=== PATIENT | female | born 1940 | race Caucasian/White ===

== ENCOUNTER → 2017-03-14 | Outpatient (CLI) | payer MEDICARE, BC ==
--- NOTE | 2017-03-15 09:18 | RADRPT ---
PROCEDURE: XR bilateral knees. CLINICAL INDICATION: Knee pain TECHNIQUE: AP weightbearing, PA weightbearing, lateral weightbearing and sunrise views of each kne e are available for review. COMPARISON: None available FINDINGS: Right knee: There is moderate osteoarthrosis involving the right medial tibial femoral compartment .This is asso ciated with joint space narrowing, subchondral sclerosis and osteophytosis. Left knee: There is moderate osteoarthrosis involving the left medial tibial femoral compartment and lateral t ibial femoral compartment. This is associated with joint space narrowing, subchondral sclerosis and osteophytosis. There is otherwise normal mineralization, architecture and alignment. No fractures are identified. No osseous lesions are identified. The soft tissues are unremarkable. IMPRESSION: Moderate osteoarthrosis involving the right medial tibial femoral compartment Moderate osteoarthrosis involving the left medial tibial femoral compartment and lateral tibial femo ral compartment. RPTAT: [facility] .Reuben Williamson MD, MD Date Time Electronically viewed and signed by .Reuben Williamson MD, on 03/15/2017 09:18 .B/
== END | disposition home or self-care (01) ==
LOC: HKI 09:48
PROVIDERS: ATTEND Orthopaedic Surgery
DX: M25.561 Pain in right knee (principal); M25.562 Pain in left knee; M17.0 Bilateral primary osteoarthritis of knee
CPT/HCPCS: 20610; 73564; G0463; J7327